=== PATIENT | male | born 1995 | race Caucasian/White ===

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

== ENCOUNTER 2017-01-09 22:11 | Emergency (ER) | payer OTHER ==
[2017-01-09] MEDS ORDERED: predniSONE TAB* 20 MG PO ONE (23:04)
[2017-01-09] MEDS ORDERED: EPINEPHrine AMP 1 MG/ML SUBCUT ONE (23:05)
[2017-01-09] MEDS ORDERED: diPHENhydraMINE PO* 25 MG PO ONE (23:05)
[2017-01-10 00:33] VITALS: BP 131/63
--- NOTE | 2017-01-10 01:09 | ED ---
Miguel Cardoso Rebecca, scribed for Dino Richards on 01/09/17 at 2311 . Allergic Reaction/Systemic - HPI Summary HPI Summary: Pt is a 21 y/o m BIBA who presents to ED c/o allergic reaction. 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 He currently c/o an erythematous rash in the pelvic area and scalp pruritis. Has not taken any medications. Denies any pain. Sx aggravated and alleviated by nothing. Reports no new lotions or creams. Documented allergy to tree nuts and peanuts and the pt confirms he has an Epi-Pen though he did not use it today. - History of Current Complaint Chief Complaint: EDRashSkinAbscess Time Seen by Provider: 01/09/17 22:53 Hx Obtained From: Patient Onset/Duration: Started hours ago - 1 hour, Still Present Severity Currently: None Pain Intensity: 0 Pain Scale Used: 0-10 Numeric Location: Discrete @ - Erythema - Pelvis Character: Pruritus - Scalp Aggravating Factor(s): Nothing Alleviating Factor(s): Nothing Associated Signs And Symptoms: Positive: Negative - Allergies/Home Medications Allergies/Adverse Reactions: Allergies Allergy/AdvReac Type Severity Reaction Status Date / Time Tree Nuts Allergy Anaphylatic Verified 01/09/17 22:49 Shock peanuts Allergy Anaphylatic Uncoded 01/09/17 22:49 Shock PMH/Surg Hx/FS Hx/Imm Hx Previously Healthy: Yes Endocrine/Hematology History: Denies: Hx Diabetes Cardiovascular History: Denies: Hx Hypertension Respiratory History: Denies: Hx Asthma Infectious Disease History: No Infectious Disease History: Denies: Traveled Outside the [place] in Last 30 Days - Family History Known Family History: Positive: Hypertension - mother - Social History Alcohol Use: Occasionally Hx Substance Use: No Substance Use Type: Reports: Prescribed Substance Use Comment - Amount & Last Used: ritalin Hx Tobacco Use: No Smoking Status (MU): Never Smoked Tobacco Review of Systems Negative: Fever Positive: Rash - Erythematous rash in the pelvic area, scalp pruritis All Other Systems Reviewed And Are Negative: Yes Physical Exam - Summary Physical Exam Summary: Appearance: Well appearing, no pain distress Skin: warm, dry, papular rash in the pelvic area Head/face: normal Eyes: EOMI, ADAM ENT: normal Neck: supple, nontender Respiratory: CTA, breath sounds present Cardiovascular: RRR, pulses symmetrical Abdomen: nontender, soft Bowel: present Musculoskeletal: normal, strength/ROM intact Neuro: normal, sensory motor intact, A&Ox3 Triage Information Reviewed: Yes Vital Signs On Initial Exam: Initial Vitals Temp Pulse Resp BP Pulse Ox 99.2 F 78 16 119/67 96 01/09/17 22:46 01/09/17 22:46 01/09/17 22:46 01/09/17 22:46 01/09/17 22:46 Vital Signs Reviewed: Yes Diagnostics - Vital Signs Vital Signs Temp Pulse Resp BP Pulse Ox 01/09/17 22:46 99.2 F 78 16 119/67 96 - Laboratory Lab Statement: Any lab studies that have been ordered have been reviewed, and results considered in the medical decision making process. Re-Evaluation - Re-Evaluation First Eval Re-Evaluation Time: 00:25 Change: Improved Comment: Pt is doing well, discussed D/C plan. Allergic Reaction Course/Dx - Course Assessment/Plan: Pt is a 21 y/o m BIBA who presents to ED c/o allergic reaction. 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 He currently c/o an erythematous rash in the pelvic area and scalp pruritis. Has not taken any medications. Denies any pain. Reports no new lotions or creams. Documented allergy to tree nuts and peanuts and the pt confirms he has an Epi-Pen though he did not use it today. In the ED course, pt was given Epinephrine, Benadryl and Deltasone. Pt will be D/C to home ith Dx of allergic reaction, Rx for Medrol Dosepak and Benadryl and a follow up with his PCP. He understands and agrees. Allergies noted. Medications reviewed. - Diagnoses Provider Diagnoses: Allergic reaction Discharge - Discharge Plan Condition: Stable Disposition: HOME Prescriptions: Methylprednisolone [Medrol Dosepak 4 MG*] 0 mg PO .SEE MONI INSTRUCTION #1 tab diPHENhydraMINE PO* [Benadryl PO 25 MG TAB*] 25 mg PO TID PRN #20 tab MDD 3 PRN Reason: Itching Patient Education Materials: General Allergic Reaction (ED) Referrals: Non Staff,Doctor [Primary Care Provider] - 3 Days The documentation as recorded by the Miguel zhang Rebecca accurately reflects the service I personally performed and the decisions made by me, Dino Richards.
== END 2017-01-10 00:42 | disposition home or self-care (01) ==
LOC: ED 22:11
DX: T78.40XA Allergy, unspecified, initial encounter (principal); X58.XXXA Exposure to other specified factors, initial encounter
CPT/HCPCS: 99283; A9270-GY; J0171; J7512